=== PATIENT | female | born 1985 | race Two or more races ===

== ENCOUNTER 2025-02-12 15:44 | Inpatient (IN) | payer MEDICAID, OTHER ==
[~2025-02-12] VITALS: Ht 160 cm; Wt 67.5 kg
[2025-02-12 17:18] LABS: Hematocrit 42.7 % (36.0-46.0); Hemoglobin 14.0 g/dL (12.2-16.2); Mean Corpuscular Hemoglobin 29.6 pg (28.0-32.0); Mean Corpuscular Volume 89.9 fL (80.0-100.0); Nucleated Red Blood Cells % 0.1 %
[2025-02-12 17:32] LABS: Alanine Aminotransferase 12 U/L (7-40); Albumin 4.3 g/dL (3.2-4.8); Anion Gap 10 (5-15); BUN/Creatinine Ratio 10.6 (10.0-20.0); Calcium 9.3 mg/dL (8.7-10.4); Carbon Dioxide 27 mmol/L (20-31); Chloride 102 mmol/L (98-107); Glucose 88 mg/dL (74-106); Lipase 40 U/L (12-53); Potassium 3.8 mmol/L (3.5-5.1); Sodium 139 mmol/L (136-145); Total Protein 7.1 g/dL (5.7-8.2)
[2025-02-12 17:33] LABS: Bilirubin, Total 0.6 mg/dL (0.2-1.0)
[2025-02-12 18:22] LABS: Alkaline Phosphatase 46 U/L (46-116); Blood Urea Nitrogen 9 mg/dL (9-23)
[2025-02-12 18:30] LABS: Urine Protein, UAD Negative (Negative)
--- NOTE | 2025-02-12 20:00 | DVH ---
Exam: CT CT AB PEL WO CON-NO ORAL OR IV History: abd pain Comparison Study: None TECHNIQUE: Multidetector CT of the abdomen and pelvis was performed from lung bases to pubic symphysis. Imaging was performed without IV contrast. Axial, coronal, and sagittal multiplanar reformats were obtained from the axial data set by the technologist. RADIATION DOSE: CTDI vol 10.27 mGy. DLP 595.44 mGy.cm Findings: Limited evaluation of the solid organs in the absence of IV contrast. Lungs: The lung bases are clear. Liver: Unremarkable. Spleen: Unremarkable. Pancreas: Unremarkable. Gallbladder: Unremarkable. Adrenals: Unremarkable Kidneys: Mild left hydroureteronephrosis. No renal calculus. Pelvic Viscera: There is enlargement of the uterus, measuring up to 25 cm in craniocaudal dimension, with heterogeneous contents. Vasculature: Unremarkable. Retroperitoneum: Unremarkable. Bowel: No bowel obstruction. The appendix is mildly dilated measuring up to 8 mm with minimal adjacent stranding. Musculoskeletal: Unremarkable. Soft tissues: Unremarkable Impression: 1. Significant enlargement of the uterus with heterogeneous contents, suboptimally assessed by CT, pelvic MRI is suggested in further assessment. Neoplastic etiologies cannot be excluded. 2. Mild dilation of the appendix with minimal adjacent stranding, clinical correlation is suggested to exclude acute appendicitis.
--- NOTE | 2025-02-12 20:17 | ED.PDOC ---
GI ASSESSMENT HPI Comments This is a 39 year old female presenting to the ED with chief complaint of abdominal pain. Patient reports that she has been experiencing diffuse 7/10 abdominal pain for the past 2-3 weeks. Patient relays that her pain is intermittent and with associated nausea and constipation with hard stools. Patient states that her LMP was on 01/30/25 and was normal. Patient noticed her abdomen being more round and full over the last few days. Patient denies any vomiting, diarrhea, flank pain, dizziness, fever, or chills. Chief Complaint: Abdominal Pain Time Seen by MD: 20:14 Reviewed Notes: Nurses Notes, Medications, Allergies Allergies: Coded Allergies: NO KNOWN ALLERGIES (Unverified , 02/12/25) Information Source: Patient Mode of Arrival: Ambulatory Timing: Weeks Duration: Since onset Prehospital treatment: None Quality: Sharp Vomitus: None Stool: Impaction Severity: Moderate Recent: None Recent Hx of: None Modifying Factors: Nothing Associated sign and symptoms: Nausea, Abdominal Pain Past Medical History PAST MEDICAL HISTORY: Denies Surgical History: Denies all surgeries MOLASSES AND CARAMEL OPERATOR History: No Pertinent MOLASSES AND CARAMEL OPERATOR History Family History Family History: Reviewed,noncontributory to illness Social History Smoker: Non-Smoker Alcohol: Denies ETOH Use Drugs: Denies Drug Use Lives In: Home Constitutional: denies: chills, diaphoresis, fatigue, fever, malaise, sweats, weakness, others EENTM: denies: blurred vision, double vision, ear bleeding, ear discharge, ear drainage, ear pain, ear ringing, eye pain, eye redness, hearing loss, mouth pain, mouth swelling, nasal discharge, nose bleeding, nose congestion, nose pain, photophobia, tearing, throat pain, throat swelling, voice changes, others Respiratory: denies: cough, hemoptysis, orthopnea, SOB at rest, shortness of breath, SOB with excertion, stridor, wheezing, others Cardiovascular: denies: chest pain, dizzy spells, diaphoresis, Dyspnea on exertion, edema, irregular heart beat, left arm pain, lightheadedness, p alpitations, PND, syncope, others Gastrointestinal: reports: abdominal pain, constipated, nausea; denies: abdomen distended, blood streaked bowels, diarrhea, dysphagia, difficulty swallowing, hematemesis, melena, poor appetite, poor fluid intake, rectal bleeding, rectal pain, vomiting, others Genitourinary: denies: abnormal vagina bleeding, burning, dyspareunia, dysuria, flank pain, frequency, hematuria, incontinence, pain, , vagina discharge, urgency, others Physical Exam General Appearance: No Apparent Distress, Normal HEENT: Normal ENT Inspection, Pharynx Normal, TMs Normal Neck: Full Range of Motion, Non-Tender, Normal, Normal Inspection Respiratory: Chest Non-Tender, Lungs Clear, No Accessory Muscle Use, No Respiratory Distress, Normal Breath Sounds Cardiovascular: No Edema, No JVD, No Murmur, No Gallop, Normal Peripheral Pulses, Regular Rate/Rhythm Breast Exam: Deferred Gastrointestinal: No Organomegaly, No Pulsatile Mass, Normal Bowel Sounds, Soft, Tenderness (Diffuse tenderness and distention noted.) Genitalia: Deferred Pelvic: Deferred Rectal: Deferred Extremities: No calf tenderness, Normal capillary refill, Normal inspection, Normal range of motion, Non-tender, No pedal edema Musculoskeletal : Apperance: Normal Neurologic: Alert, bank advisor II-XII nml as Tested, No Motor Deficits, Normal Affect, Normal Mood, No Sensory Deficits Cerebellar Function: Normal Reflexes: Normal Skin: Dry, Normal Color, Warm Lymphatic: No Adenopathy Was a procedure done? Was a procedure done?: No GI differential Dx Differential Diagnosis: Gastritis/PUD, Gastroenteritis, GI hemorrhage, Ischemic Bowel, Ovarian cyst/torsion, Pancreatitis, PID X-Ray, Labs, Meds, VS Vital Signs Date Time Temp Pulse Resp B/P (MAP) Pulse Ox O2 Delivery O2 Flow Rate FiO2 02/12/25 18:02 97.5 74 15 130/76 (94) 95 97.5 02/12/25 15:46 97.7 86 16 136/89 97 97.7 Lab Test 02/12/25 17:48 02/12/25 16:44 Range/Units Urine Color Light-yellow Yellow Urine Clarity Turbid H Clear Urine pH 7.0 5.0-9.0 Urine Specific [place] 1.012 1.001-1.035 Urine Protein Negative Negative Urine Ketones Negative Negative Urine Blood 1+ H Negative /uL Urine Nitrite Negative Negative Urine Bilirubin Negative Negative Urine Urobilinogen Normal Negative mg/dL Urine Leukocyte Esterase 3+ Negative /uL Urine RBC 6 0 - 4 /hpf Urine Microscopic WBC 11 H 0-5 /HPF Urine Squamous Epithelial Cells Few <5 /hpf Urine Bacteria Few H None Seen /hpf Urine Glucose Normal Normal mg/dL Urine Test Negative Negative White Blood Count 6.6 4.4-10.8 10^3/uL Red Blood Count 4.75 4.0-5.20 10^6/uL Hemoglobin 14.0 12.2-16.2 g/dL Hematocrit 42.7 36.0-46.0 % Mean Corpuscular Volume 89.9 80.0-100.0 fL Mean Corpuscular Hemoglobin 29.6 28.0-32.0 pg Mean Corpuscular Hemoglobin Concent 32.9 32.0-36.0 g/dL Red Cell Distribution Width 15.3 H 11.8-14.3 % Platelet Count 277 140-450 10^3/uL Mean Platelet Volume 7.8 6.9-10.8 fL Neutrophils (%) (Auto) 46.2 37.0-80.0 % Lymphocytes (%) (Auto) 39.6 10.0-50.0 % Monocytes (%) (Auto) 8.1 0.0-12.0 % Eosinophils (%) (Auto) 5.1 0.0-7.0 % Basophils (%) (Auto) 1.0 0.0-2.0 % Neutrophils # (Auto) 3.0 1.6-8.6 10 ^3/uL Lymphocytes # (Auto) 2.6 0.4-5.4 10 ^3/uL Monocytes # (Auto) 0.5 0-1.3 10 ^3/uL Eosinophils # (Auto) 0.3 0-0.8 10 ^3/uL Basophils # (Auto) 0.1 0-0.2 10 ^3/uL Nucleated Red Blood Cells 0.1 % Sodium Level 139 136-145 mmol/L Potassium Level 3.8 3.5-5.1 mmol/L Chloride Level 102 98-107 mmol/L Carbon Dioxide Level 27 20-31 mmol/L Anion Gap 10 5-15 Blood Urea Nitrogen 9 9-23 mg/dL Creatinine 0.85 0.550-1.02 mg/dL Glomerular Filtration Rate Calc 89 >90 mL/min BUN/Creatinine Ratio 10.6 10.0-20.0 Serum Glucose 88 74-106 mg/dL Calcium Level 9.3 8.7-10.4 mg/dL Total Bilirubin 0.6 0.2-1.0 mg/dL Aspartate Amino Transferase (AST) 16 13-40 U/L Alanine Aminotransferase (ALT) 12 7-40 U/L Alkaline Phosphatase 46 46-116 U/L Total Protein 7.1 5.7-8.2 g/dL Albumin 4.3 3.2-4.8 g/dL Lipase 40 12-53 U/L X-Ray, Labs, Meds, VS Comment Patient will be admitted for abdominal pain, and uterine mass Recommend further evaluation, possible MRI Patient's vital signs have been stable, reviewed by this provider Prior history is reviewed by this provider Time of 1ST Reevaluation: 20:25 Reevaluation 1ST: Unchanged Patient Education/Counseling: Diagnosis, Treatment Family Education/Counseling: No Family Present SEPSIS Sepsis Screen Date sepsis recognized/suspect: Feb 12, 2025 Time Sepsis recognized/suspect: 1545 Recent Procedure: No On Antibiotic Therapy: No Respiratory Rate >20: No Heart Rate >90: No Temp<36 C (96.8 F) or >38.3 C: No SBP <90 or MAP <65 mmHG: No New Acute Mental Status Change: No Is the patient on CPAP, BIPAP,: No Physician Orders Ct Ab Pel Wo Con-No Oral Or Iv (02/12/25 16:14) Vital Signs Date Time Temp Pulse Resp B/P (MAP) Pulse Ox O2 Delivery O2 Flow Rate FiO2 02/12/25 18:02 97.5 74 15 130/76 (94) 95 97.5 02/12/25 15:46 97.7 86 16 136/89 97 97.7 Laboratory Tests Test 02/12/25 16:44 White Blood Count 6.6 10^3/uL (4.4-10.8) Departure 1 Departure Time of Disposition: 20:50 Impression: Primary Impression: Uterine mass Disposition: ADMITTED INPATIENT Condition: Stable Discharged With: Self Critical Care Note Critical Care Time?: No Stability Stability form required: No Heart Score Heart Score: Heart Score Response (Comments) Value History N/A 0 EKG N/A 0 Age N/A 0 Risk Factors N/A 0 Troponin N/A 0 Total 0 I personally scribed for AVTAR HOUSE ([email or web address]) on 02/12/25 at 20:17. Electronically submitted by [place] ([email or web address]). AVTAR HOUSE Feb 12, 2025 20:17
[2025-02-12] MEDS: SODIUM CHLORIDE 0.9% 1,000 ML IV ONE (23:15)
--- NOTE | 2025-02-12 23:29 | DVHHPRES ---
History of Present Illness Resident Creating Document: CAROLINA MARSHALL History of Present Illness Patient is a 39-year-old female with no significant past medical history, presented to [facility] ED with complaint of abdominal pain. The patient reports experiencing diffuse mid-abdominal pain, rated 7/10 in in tensity, for the past 3 weeks. She describes the pain as intermittent and associated with nausea and constipation, characterized by hard stools. Her last menstrual period was on 01/30/25 and was normal. Over the past few days, she has noticed increased abdominal fullness and rounding. The patient denies vomiting, diarrhea, flank pain, dizziness, fever, or chills. The patient was born with deafness. On evaluation in the ED, patient is afebrile, vitals are stable. Initial laboratory results are within normal limits. Abdominal CT shows significant enlargement of the uterus with heterogeneous contents and mild dilation of the appendix with minimal adjacent stranding. The patient was placed NPO, started on IV antibiotics and IV fluids. Patient is admitted for further evaluation and management. Past Surgical History: None Family History: None Smoke: No ALCOHOL: none Drugs: None Lives: with Family Review of Systems Review of Systems Eyes: No Pain, No Vision change, No Conjunctivae inflammation, No Eyelid inflammation, No Other, No Redness ENT: No Ear pain, No Ear discharge, No Nose pain, No Nose discharge, No Nose congestion, No Mouth pain, No Mouth swelling, No Throat pain, No Throat swelling, No Other Cardiovascular: No Chest Pain, No Palpitations, No Orthopnea, No Paroxysmal No Dyspnea, No Edema, No Lt Headedness, No Other Respiratory: No Cough, No Dry, No Shortness of breath, No SOB with exertion, No Wheezing, No Hemoptysis, No Pleuritic Pain, No Sputum, No Other Gastrointestinal: No Nausea, No Vomiting, Abdominal Pain, No Diarrhea, Constipation, No Melena, No Hematochezia, No Other Genitourinary: No Dysuria, No Frequency, No Incontinence, No Hematuria, No Retention, No Other Musculoskeletal: No other, No neck pain, No shoulder pain, No arm pain, back pain, No hand pain, No leg pain, No foot pain Skin: No Rash, No Lesions, No Jaundice, No Bruising, No Other Allergies: Coded Allergies: NO KNOWN ALLERGIES (Unverified , 02/12/25) Medications Current Medications Medications Dose Ordered Sig/Glenn Route Start Time Stop Time Status Last Admin Dose Admin Acetaminophen/ Hydrocodone Bitart 1 tab Q4HP PRN PO 02/12/25 23:15 UNV Ondansetron HCl 4 mg Q4HP PRN IV 02/12/25 23:15 UNV Docusate Sodium 100 mg BIDPRN PRN PO 02/12/25 23:15 UNV Ceftriaxone Sodium 50 ml @ 100 mls/hr DAILY@09 IV 02/13/25 09:00 UNV Exam Vital Signs Vital Signs Date Time Temp Pulse Resp B/P (MAP) Pulse Ox O2 Delivery O2 Flow Rate FiO2 02/12/25 18:02 97.5 74 15 130/76 (94) 95 97.5 Exam General Appearance: Mild distress. Well developed. Well nourished. NAD Head Exam: Normal inspection Neck Exam: Normal inspection. Non-tender. Normal alignment Pulmonary/Respiratory: Chest non-tender. Clear bilateral breath sounds, no crackles, no wheezing. Cardiovascular/Chest: Regular rate and rhythm. No murmurs. No JVD. Peripheral Pulses: 2+ Radial (R). 2+ Radial (L). 2+ Pedal (R). 2+ Pedal (L) Abdominal Exam: Diffuse tenderness and distention. negative Zaldivar sign. Normal bowel sounds. Soft. normal abdomen, no visible veins, No hepatospenomegaly. No masses Ankle Exam: Negative ankle edema Lower extremities: Negative lower extremity edema Neuro/Mental Status: A&O x4. Coherent. Thoughts/Psych: Normal thought pattern. Appropriate mood and affect. Good judgement and insight Skin Exam: Normal inspection. Normal color. Warm. Dry Labs/Xrays Labs Test 02/12/25 17:48 02/12/25 16:44 Range/Units Urine Color Light-yellow Yellow Urine Clarity Turbid H Clear Urine pH 7.0 5.0-9.0 Urine Specific [place] 1.012 1.001-1.035 Urine Protein Negative Negative Urine Ketones Negative Negative Urine Blood 1+ H Negative /uL Urine Nitrite Negative Negative Urine Bilirubin Negative Negative Urine Urobilinogen Normal Negative mg/dL Urine Leukocyte Esterase 3+ Negative /uL Urine RBC 6 0 - 4 /hpf Urine Microscopic WBC 11 H 0-5 /HPF Urine Squamous Epithelial Cells Few <5 /hpf Urine Bacteria Few H None Seen /hpf Urine Glucose Normal Normal mg/dL Urine Test Negative Negative White Blood Count 6.6 4.4-10.8 10^3/uL Red Blood Count 4.75 4.0-5.20 10^6/uL Hemoglobin 14.0 12.2-16.2 g/dL Hematocrit 42.7 36.0-46.0 % Mean Corpuscular Volume 89.9 80.0-100.0 fL Mean Corpuscular Hemoglobin 29.6 28.0-32.0 pg Mean Corpuscular Hemoglobin Concent 32.9 32.0-36.0 g/dL Red Cell Distribution Width 15.3 H 11.8-14.3 % Platelet Count 277 140-450 10^3/uL Mean Platelet Volume 7.8 6.9-10.8 fL Neutrophils (%) (Auto) 46.2 37.0-80.0 % Lymphocytes (%) (Auto) 39.6 10.0-50.0 % Monocytes (%) (Auto) 8.1 0.0-12.0 % Eosinophils (%) (Auto) 5.1 0.0-7.0 % Basophils (%) (Auto) 1.0 0.0-2.0 % Neutrophils # (Auto) 3.0 1.6-8.6 10 ^3/uL Lymphocytes # (Auto) 2.6 0.4-5.4 10 ^3/uL Monocytes # (Auto) 0.5 0-1.3 10 ^3/uL Eosinophils # (Auto) 0.3 0-0.8 10 ^3/uL Basophils # (Auto) 0.1 0-0.2 10 ^3/uL Nucleated Red Blood Cells 0.1 % Sodium Level 139 136-145 mmol/L Potassium Level 3.8 3.5-5.1 mmol/L Chloride Level 102 98-107 mmol/L Carbon Dioxide Level 27 20-31 mmol/L Anion Gap 10 5-15 Blood Urea Nitrogen 9 9-23 mg/dL Creatinine 0.85 0.550-1.02 mg/dL Glomerular Filtration Rate Calc 89 >90 mL/min BUN/Creatinine Ratio 10.6 10.0-20.0 Serum Glucose 88 74-106 mg/dL Calcium Level 9.3 8.7-10.4 mg/dL Total Bilirubin 0.6 0.2-1.0 mg/dL Aspartate Amino Transferase (AST) 16 13-40 U/L Alanine Aminotransferase (ALT) 12 7-40 U/L Alkaline Phosphatase 46 46-116 U/L Total Protein 7.1 5.7-8.2 g/dL Albumin 4.3 3.2-4.8 g/dL Lipase 40 12-53 U/L SEPSIS Sepsis Screen Date sepsis recognized/suspect: Feb 12, 2025 Time Sepsis recognized/suspect: 1545 Recent Procedure: No On Antibiotic Therapy: No Respiratory Rate >20: No Heart Rate >90: No Temp<36 C (96.8 F) or >38.3 C: No SBP <90 or MAP <65 mmHG: No New Acute Mental Status Change: No Is the patient on CPAP, BIPAP,: No Physician Orders Ct Ab Pel Wo Con-No Oral Or Iv (02/12/25 16:14) Admit (02/12/25 23:05) Allergies (02/12/25 23:05) Code Status (02/12/25 23:05) Hydrocodone-Acet 5/325mg Tab ([place] 5/32 (02/12/25 23:15) Ondansetron Hcl (Zofran) (02/12/25 23:15) Complete Blood Count (02/13/25 04:00) Comprehensive Metabolic Panel (02/13/25 04:00) Condition: Stable (02/12/25 23:05) Stat Ekg For Chest Pain (02/12/25 23:05) Notify Of Changes From Base (02/12/25 23:05) * Road Patcher Consultation (02/12/25 23:05) Drug Screen (02/12/25 23:05) Type And Screen (02/12/25 23:05) PTPTT (02/12/25 23:05) Chest Xray 1 View (02/12/25 23:05) Ceftriaxone 1gm/50ml (Rocephin) (02/13/25 09:00) Ceftriaxone 1gm/50ml (Rocephin) (02/12/25 23:15) Sodium Chloride 0.9% (02/12/25 23:15) Abdomen Limited (02/12/25 23:05) Urine Bacterial Culture (02/12/25 23:05) Npo Except For Medications (02/12/25 23:05) Npo (Nothing By Mouth) Diet (02/12/25 Breakfast) Docusate Sodium Capsule (Colace Capsule) (02/12/25 23:15) Vital Signs Date Time Temp Pulse Resp B/P (MAP) Pulse Ox O2 Delivery O2 Flow Rate FiO2 02/12/25 18:02 97.5 74 15 130/76 (94) 95 97.5 02/12/25 15:46 97.7 86 16 136/89 97 97.7 Laboratory Tests Test 02/12/25 16:44 White Blood Count 6.6 10^3/uL (4.4-10.8) Assessment/Plan Assessment/Plan Acute appendicitis Intractable abdominal pain due to above Abdomen/Pelvis CT: The appendix is mildly dilated measuring up to 8 mm with minimal adjacent stranding. Appendix US: The appendix was not visualized. IV NS 125 MLS/HR Zofran 4 MG IV q4h pain management with [place] 1 TAB PO q4h prn Ceftriaxone IV daily Urine bacterial culture Uterine neoplasm Abdomen/Pelvis CT: There is enlargement of the uterus, measuring up to 25 cm in craniocaudal dimension, with heterogeneous contents. OBGYN consult Pelvic MRI is suggested in further assessment No history of sexual activity No prior Pap smear Diet: NPO Goals of care: Full code, discussed for >30 minutes on 02/12/25 Plan discussed with patient Plan discussed with Dr. Bronson Plan discussed with: Patient My Orders Orders - CAROLINA MARSHALL RESIDENT Procedure Category Date Status Time Admit ADMIT 02/12/25 Transmitted 23:05 Allergies ANCA 02/12/25 In Process 23:05 Code Status CODE 02/12/25 Transmitted 23:05 Hydrocodone-Acet PHA 02/12/25 Logged 5/325mg Tab ([place] 23:15 Ondansetron Hcl PHA 02/12/25 Logged (Zofran) 23:15 Complete Blood Count LAB 02/13/25 Verified 04:00 Comprehensive LAB 02/13/25 Verified Metabolic Panel 04:00 Condition: Stable ANCA 02/12/25 In Process 23:05 Stat Ekg For Chest ANCA 02/12/25 In Process Pain 23:05 Notify Of Changes ANCA 02/12/25 In Process From Base 23:05 * Road Patcher Consultation CONS 02/12/25 Transmitted 23:05 Drug Screen LAB 02/12/25 Logged 23:05 Type And Screen BBK 02/12/25 Logged 23:05 PTPTT LAB 02/12/25 Logged 23:05 Chest Xray 1 View XY 02/12/25 Logged 23:05 Ceftriaxone 1gm/50ml PHA 02/13/25 Logged (Rocephin) 09:00 Ceftriaxone 1gm/50ml PHA 02/12/25 Logged (Rocephin) 23:15 Sodium Chloride 0.9% PHA 02/12/25 Logged 23:15 Abdomen Limited US 02/12/25 Logged 23:05 Urine Bacterial SAVANNAH 02/12/25 Logged Culture 23:05 Npo Except For ANCA 02/12/25 In Process Medications 23:05 Npo (Nothing By DIET 02/12/25 Transmitted Mouth) Diet Breakfast Docusate Sodium PHA 02/12/25 Verified Capsule (Colace 23:15 Date of Service: Feb 12, 2025 Billing Provider: DONTE BRONSON MD Common Visit Codes: 02616-[id number] INP/OBS CARE (HIGH) Secondary Visit Codes: [id number] CARE PLAN 30 MINUTES CAROLINA MARSHALL RESIDENT Feb 12, 2025 23:29
[2025-02-12 23:55] LABS: Amphetamine Screen, Urine Neg (NEGATIVE); Barbiturate Scree,Urine Neg (NEGATIVE); Benzodiazephine Screen, Urine Neg (NEGATIVE); Cannabinoid Screen, Urine Neg (NEGATIVE); Cocaine Screen, Urine Neg (NEGATIVE); Opiate Scree,Urine Neg (NEGATIVE); Phencyclidine Screen, Urine Neg (NEGATIVE)
[2025-02-13] VITALS (9 sets, daily range): BP systolic 120–135; BP diastolic 79–88; PULSE 90–117; RESP 16–18; TEMP 97.4–98.9; O2SAT 96–99
[2025-02-13 01:02] LABS: INR 1.01 (0.9-1.15); Partial Thromboplastin Time 29.1 SEC (24.5-34.5); Prothrombin Time 10.7 sec (9.3-11.8)
--- NOTE | 2025-02-13 01:02 | DVH ---
STUDY: US RIGHT LOWER QUAD History: r/o appendicitis Technique: Multiplanar grayscale, and color ultrasound images, of the abdomen were obtained. Color Doppler interrogation was performed. Findings: The appendix was not visualized. Enlarged uterus is incidentally noted. IMPRESSION: 1. The appendix was not visualized. 2. Incidental note of enlarged uterus, suboptimally assessed.
[2025-02-13] MEDS ORDERED: CETI-195 PO (01:42)
--- NOTE | 2025-02-13 05:59 | DVH ---
CHEST RADIOGRAPH Indication: Chest pain Technique: Single frontal view of the chest was obtained Comparison: None FINDINGS: Lines and Tubes: None Lungs: No focal consolidation. Pleura: No effusion. No pneumothorax. Cardiomediastinal contours: Unremarkable Bones: No acute osseous abnormality. IMPRESSION: 1. No acute cardiopulmonary disease.
[2025-02-13 06:12] LABS: Hematocrit 39.5 % (36.0-46.0); Hemoglobin 13.4 g/dL (12.2-16.2); Mean Corpuscular Hemoglobin 29.5 pg (28.0-32.0); Mean Corpuscular Volume 87.1 fL (80.0-100.0); Nucleated Red Blood Cells % 0.1 %
[2025-02-13 06:44] LABS: Alanine Aminotransferase < 9 U/L (7-40); Albumin 4.0 g/dL (3.2-4.8); Alkaline Phosphatase 43 U/L (46-116); Anion Gap 12 (5-15); BUN/Creatinine Ratio 10.1 (10.0-20.0); Bilirubin, Total 0.4 mg/dL (0.2-1.0); Blood Urea Nitrogen 8 mg/dL (9-23); Calcium 9.1 mg/dL (8.7-10.4); Carbon Dioxide 26 mmol/L (20-31); Chloride 103 mmol/L (98-107); Glucose 101 mg/dL (74-106); Potassium 3.8 mmol/L (3.5-5.1); Sodium 141 mmol/L (136-145); Total Protein 6.7 g/dL (5.7-8.2)
--- NOTE | 2025-02-13 10:37 | DVH ---
INDICATION: Abdominal pain TECHNIQUE: Multiple real-time grayscale transabdominal sonographic images along with color and duplex Doppler of the uterus and ovaries were obtained. COMPARISON: US RIGHT LOWER QUAD on DOS: 02/12/25, CT CT AB PEL WO CON-NO ORAL OR IV on DOS: 02/12/25 FINDINGS: The uterus is difficult to measure given large intrauterine mass. Large solid mass is visualized centered in the pelvis measuring 24 x 14 x 2.4 cm. Bilateral ovaries are not well visualized due to obscuration from bowel gas. IMPRESSION: Large solid mass is visualized centered in the pelvis measuring 24 x 14 x 2.4 cm. Findings are suspicious for malignancy. Origin may be ovarian or intrauterine.
[2025-02-13] MEDS: ONDANSETRON HCL 4 MG/2 ML VIAL IV PRN (10:41)
[2025-02-13] MEDS ORDERED: LORazepam 2MG/ML-1ML VIAL IV ONE (13:00)
--- NOTE | 2025-02-13 13:00 | DVHPN2 ---
Progress Note Date Seen: Feb 13, 2025 Medical Necessity Reason Pt with a Central, PICC or Fol: No Subjective Patient reports: No new complaints Review of Systems: HEENT:Normal, CVS:Normal, RESPIRATORY:Normal, GI:Normal, :Normal, MSK:Normal, NEURO:Normal Objective vital signs Vital Sign Date Time Temp Pulse Resp B/P (MAP) Pulse Ox O2 Delivery O2 Flow Rate FiO2 02/13/25 09:00 97.4 93 16 122/88 (99) 98 97.4 02/13/25 08:00 Room Air* 0 21 Total Intake and Output 02/12/25 02/12/25 02/13/25 15:00 23:00 07:00 Intake Total 0 ml Output Total 0 ml Balance 0 ml medications Current Medications Medications Dose Ordered Sig/Glenn Route Start Time Stop Time Status Last Admin Dose Admin Acetaminophen/ Hydrocodone Bitart 1 tab Q4HP PRN PO 02/12/25 23:15 Ondansetron HCl 4 mg Q4HP PRN IV 02/12/25 23:15 02/13/25 10:41 4 MG Docusate Sodium 100 mg BIDPRN PRN PO 02/12/25 23:15 Ceftriaxone Sodium 50 ml @ 100 mls/hr DAILY@09 IV 02/14/25 09:00 Examination: GENERAL:Normal, HEENT:Normal, NECK:Normal, LUNGS:Normal, CVS:Normal, ABDOMEN:Normal, ABDOMEN:Abnormal (distension), MSK:Normal, SKIN:Normal, NEURO:Normal, :Normal laboratory and microbiology Laboratory Tests 02/13/25 05:25 Test 02/13/25 05:25 Range/Units Serum Glucose 101 74-106 mg/dL Problem List/Assessment/Plan Problem List/Assessment/Plan #1 large pelvic mass: mri pelvis, ca 125 #2 uti: iv rocephin #3 obesity #4 deafness Plan discussed with: Patient, Other (parents) Date of Service: Feb 13, 2025 Billing Provider: VALENTIN SERRANO MD Common Visit Codes: [id number] INP/OBS CARE(HIGH) VALENTIN SERRANO MD Feb 13, 2025 13:00
[2025-02-13] MEDS ORDERED: GADOTERATE MEG 10 MMOL/20ml INJ (0.5MMOL/ml) IV ONE (15:28)
--- NOTE | 2025-02-13 16:46 | DVHPN2 ---
Visit Coding OBGYN Date of Service: Feb 13, 2025 Billing Provider: RAY MORAN DO WIPING CLOTH CUTTER Common Visit Codes: [id number] OBS CARE (HIGH) WIPING CLOTH CUTTER Consultation Codes: 44460-T/U INPATIENT CONSULT (HIGH) RAY MORAN DO Feb 13, 2025 16:46
--- NOTE | 2025-02-13 17:36 | DVHINCON2 ---
REASON FOR CONSULTATION: Abdominal pain, pelvic mass. HISTORY OF PRESENT ILLNESS: The patient is a 39-year-old 0, para 0 female admitted for abdominal pain. The patient reports having had abdominal pain which started 3 weeks ago, became worse. There has been some intermittent nausea and constipation. Last menstrual period was 01/30. Reports having increase in abdominal fullness and girth. The patient was born with hearing impairment. She has never been sexually active and has not had any Pap smear. CT of abdomen reveals enlargement of uterus 25 cm with hydroureteronephrosis. Pelvic ultrasound reveals solid mass in mid pelvis approximately 25 x 14 x 2.4. PAST MEDICAL HISTORY: None. PAST SURGICAL HISTORY: None. SOCIAL HISTORY: None. FAMILY HISTORY: None. ALLERGIES: No known drug allergies. REVIEW OF SYSTEMS: Consistent with HPI. PHYSICAL EXAMINATION: VITAL SIGNS: Stable, afebrile. HEENT: Within normal limits. CARDIOVASCULAR: Regular rate and rhythm. LUNGS: Clear to auscultation. BREASTS: Symmetrical. No masses. No nipple discharge. ABDOMEN: Distended, diffuse, tenderness and distention noted. Large mass consistent with approximately 30-week size noted. PELVIC: Reveals external genitalia within normal limits. No digital exam was performed. Uterus 30 weeks' size per abdominal palpation. EXTREMITIES: No clubbing, cyanosis or edema. IMPRESSION: Abdominal pain, enlarging uterus/pelvic mass. PLAN: MRI of pelvis was ordered. CA-125 ordered. We will contact Dr. Redman, Cracking Still Operator/Onc at [facility] for transfer to [facility]. We will follow. Thank you very much for this consultation. DO RIGO Wright/RIZWANA/GUALBERTO TID: [id number] RECEIPT: [id number]
[2025-02-13] MEDS: DOCUSATE SOD 100 MG CAP PO PRN (18:53)
--- NOTE | 2025-02-13 20:06 | DVH ---
Exam: MRI PELVIS WO W CONTRAST MRI History: pelvic mass Comparison: US PELVIC on DOS: 02/13/25, US RIGHT LOWER QUAD on DOS: 02/12/25, CT CT AB PEL WO CON-NO ORAL OR IV on DOS: 02/12/25 Technique: Multisequence multiplanar MRI images of the pelvis were performed. Findings: Bladder: Unremarkable. Visualized bowel: Visualized portion of the bowel is grossly unremarkable without evidence for obstruction. Pelvic organs: Uterus measures 7.1 x 3.8 x 8.0 cm. Endometrium is within normal limits and measures 0.9 cm. Few Small Intramural fibroids are present measuring up to 2.6 cm, anteriorly. Right ovary is not definitively visualized. Left ovary measures 3.6 cm. Left ovarian follicles are present. Redemonstration of heterogeneous mass abutting the superior and posterior aspect of the uterus which demonstrates postcontrast enhancement measuring 21.5 x 11.7 x 23.8 cm. Lymphadenopathy: No evidence for pelvic lymphadenopathy. Vasculature: There is normal enhancement of the pelvic vasculature. Ascites: Absent. Musculoskeletal: The bone marrow signal is preserved. IMPRESSION: Redemonstration of indeterminate heterogeneous pelvic mass measuring 21.5 x 11.7 x 23.8 cm. Differential considerations could include low-grade uterine leiomyosarcoma versus less likely other malignant uterine neoplasm or complex ovarian neoplasm.
[2025-02-14] VITALS (9 sets, daily range): BP systolic 93–136; BP diastolic 65–87; PULSE 101–112; RESP 18; TEMP 97.4–98.8; O2SAT 95–98
--- NOTE | 2025-02-14 11:18 | DVHDS2 ---
Discharge Summary Date of Admission Feb 12, 2025 at 23:05 Date of Discharge: Feb 13, 2025 Labs/Diagnostic Data: Laboratory Results Test 02/13/25 13:50 02/13/25 05:25 02/13/25 00:08 02/12/25 17:48 CA 125 Antigen 25.3 U/mL (0.0-38.1) White Blood Count 6.3 10^3/uL (4.4-10.8) Red Blood Count 4.53 10^6/uL (4.0-5.20) Hemoglobin 13.4 g/dL (12.2-16.2) Hematocrit 39.5 % (36.0-46.0) Mean Corpuscular Volume 87.1 fL (80.0-100.0) Mean Corpuscular Hemoglobin 29.5 pg (28.0-32.0) Mean Corpuscular Hemoglobin Concent 33.9 g/dL (32.0-36.0) Red Cell Distribution Width 14.8 % (11.8-14.3) Platelet Count 261 10^3/uL (140-450) Mean Platelet Volume 7.7 fL (6.9-10.8) Neutrophils (%) (Auto) 59.0 % (37.0-80.0) Lymphocytes (%) (Auto) 31.1 % (10.0-50.0) Monocytes (%) (Auto) 6.9 % (0.0-12.0) Eosinophils (%) (Auto) 2.1 % (0.0-7.0) Basophils (%) (Auto) 0.9 % (0.0-2.0) Neutrophils # (Auto) 3.7 10 ^3/uL (1.6-8.6) Lymphocytes # (Auto) 2.0 10 ^3/uL (0.4-5.4) Monocytes # (Auto) 0.4 10 ^3/uL (0-1.3) Eosinophils # (Auto) 0.1 10 ^3/uL (0-0.8) Basophils # (Auto) 0.1 10 ^3/uL (0-0.2) Nucleated Red Blood Cells 0.1 % Sodium Level 141 mmol/L (136-145) Potassium Level 3.8 mmol/L (3.5-5.1) Chloride Level 103 mmol/L (98-107) Carbon Dioxide Level 26 mmol/L (20-31) Anion Gap 12 (5-15) Blood Urea Nitrogen 8 mg/dL (9-23) Creatinine 0.79 mg/dL (0.550-1.02) Glomerular Filtration Rate Calc 97 mL/min (>90) BUN/Creatinine Ratio 10.1 (10.0-20.0) Serum Glucose 101 mg/dL (74-106) Calcium Level 9.1 mg/dL (8.7-10.4) Total Bilirubin 0.4 mg/dL (0.2-1.0) Aspartate Amino Transferase (AST) 13 U/L (13-40) Alanine Aminotransferase (ALT) < 9 U/L (7-40) Alkaline Phosphatase 43 U/L (46-116) Total Protein 6.7 g/dL (5.7-8.2) Albumin 4.0 g/dL (3.2-4.8) Prothrombin Time 10.7 sec (9.3-11.8) Prothrombin Time INR 1.01 (0.9-1.15) Activated Partial Thromboplast Time 29.1 SEC (24.5-34.5) Urine Color Light-yellow (Yellow) Urine Clarity Turbid (Clear) Urine pH 7.0 (5.0-9.0) Urine Specific [place] 1.012 (1.001-1.035) Urine Protein Negative (Negative) Urine Ketones Negative (Negative) Urine Blood 1+ /uL (Negative) Urine Nitrite Negative (Negative) Urine Bilirubin Negative (Negative) Urine Urobilinogen Normal mg/dL (Negative) Urine Leukocyte Esterase 3+ /uL (Negative) Urine RBC 6 /hpf (0 - 4) Urine Microscopic WBC 11 /HPF (0-5) Urine Squamous Epithelial Cells Few /hpf (<5) Urine Bacteria Few /hpf (None Seen) Urine Glucose Normal mg/dL (Normal) Urine Test Negative (Negative) Urine Opiates Screen Neg (NEGATIVE) Urine Fentanyl Screen Neg (NEGATIVE) Urine Barbiturates Screen Neg (NEGATIVE) Urine Phencyclidine Screen Neg (NEGATIVE) Urine Amphetamines Screen Neg (NEGATIVE) Urine Benzodiazepines Screen Neg (NEGATIVE) Urine Cocaine Screen Neg (NEGATIVE) Urine Cannabinoids Screen Neg (NEGATIVE) Test 02/12/25 16:44 Lipase 40 U/L (12-53) Other Laboratory Tests 11/11/25 05:25 Brief Hx & Hospital Course: SEE DICTATED NOTE Condition at Discharge: Fair Final Diagnosis/Problems List Pelvic mass Discharge Disposition: Acute Care Facility Discharge Instruct/Medications Diet: Regular Activity: Light activity Miscellaneous Medications Cetirizine HCl (Allergy), 10 MG PO, (Reported) Discharge Statement: "Patient was advised to return to the ER or call 911 if any headaches, dizziness, shortness of breath, chest pain, abdominal pain, bleeding, fevers, or worsening of medical condition. Patient was counseled about treatment plan, medications, possible side effects, patientverbalized understanding. All questions were answered to the best of my ability. This discharge took greater then 30 minutes in planning, reviewing documentation, counseling the patient, and discussing with other team members." ASSESSMENT ASSESSMENT Assessment Pelvic mass Date of Service: Feb 14, 2025 Billing Provider: VALENTIN SERRANO MD Common Visit Codes: 73149-BSV/OBS DISCH DAY >30min VALENTIN SERRANO MD Feb 14, 2025 11:18
--- NOTE | 2025-02-14 11:31 | DVHDS ---
DATE OF DISCHARGE: 02/14/2025 DATE OF TRANSFER: 02/14/2025 HISTORY OF PRESENT ILLNESS: The patient is a 39-year-old lady who is admitted with history of diffuse abdominal pain along with nausea and constipation. The patient also had difficulty hearing. HOSPITAL COURSE: The patient had a CT of abdomen and pelvis that showed a large pelvic mass. The patient subsequently had a pelvic MRI that showed a pelvic mass suggestive of possible low-grade uterine leiomyosarcoma or other malignant uterine neoplasm or complex ovarian neoplasm. The patient also had UTI and was placed on IV Rocephin. She was seen in [facility] consult by Dr. Garza. The patient will now be transferred to a higher level of care for management. FINAL DIAGNOSES: * Large pelvic mass, questionably uterine, questionably malignant. * UTI. * Obesity. * Deafness. Time spent in discharge planning, review of plan with the patient, family, and wig sales consultant was 41 minutes. MD ISABEL Hubbard/KALE TID: [id number] RECEIPT: [id number]
[2025-02-14] MEDS: HYDROcodone-ACET 5/325MG TAB PO PRN (15:16)
== END 2025-02-14 20:49 | disposition short-term general hospital (02) | DRG 530 ==
LOC: ER 15:44 → OVERFLOW 23:05 → WEST WING 02-13 00:52
PROVIDERS: ADMIT Internal Medicine; ATTEND Internal Medicine
DX: C55 Malignant neoplasm of uterus, part unspecified (principal); C56.2 Malignant neoplasm of left ovary; C57.3 Malignant neoplasm of parametrium; N13.6 Pyonephrosis; E66.9 Obesity, unspecified; R19.00 Intra-abdominal and pelvic swelling, mass and lump, unspecified site; H91.90 Unspecified hearing loss, unspecified ear; N85.2 Hypertrophy of uterus; Z68.26 Body mass index [BMI] 26.0-26.9, adult; K59.00 Constipation, unspecified
CPT/HCPCS: 36415; 71045; 73723; 74176; 76705; 76856; 80053; 80307; 81001; 81025; 83690; 85025; 85610; 85730; 86304; 86850; 86900; 86901; 87086; G0378; J2405

== ENCOUNTER 2025-03-09 18:28 | Emergency (ER) | payer MEDICAID ==
[~2025-03-09] VITALS: Ht 160 cm; Wt 70.7 kg
[~2025-03-09 18:28] MED LIST: CETI-195 PO
[2025-03-09 18:32] VITALS: BP 130/79; PULSE 130; RESP 17; TEMP 98.3; O2SAT 95
--- NOTE | 2025-03-09 19:18 | ED.PDOC ---
AERIAL PHOTOGRAPHER HPI Comments 39-year-old female came to the ER for vaginal bleeding. Patient underwent hysterectomy at [facility] last February 19, 2025 due to a pelvic mass. Patient tolerated procedure well. 2 days prior to the procedure patient was started on blood thinners due to a blood clot seen in the lungs. Earlier today patient started complaining for lower quadrant abdominal pain, started having vaginal bleeding. Patient still on Eliquis. Chief Complaint: Vaginal Bleed Time Seen by MD: 19:17 Reviewed Notes: Nurses Notes Allergies: Coded Allergies: NO KNOWN ALLERGIES (Unverified , 02/12/25) Home Meds Reported Medications Cetirizine HCl (Allergy) 10 Mg Tab, 10 MG PO, TAB 02/13/25 Information Source: Patient, Friend Mode of Arrival: Ambulatory Past Medical History PAST MEDICAL HISTORY: Denies Past Medical History (Other): Deaf Surgical History: Hysterectomy INDUSTRIAL EDUCATION TEACHER History: No Pertinent INDUSTRIAL EDUCATION TEACHER History Family History Family History: Reviewed,noncontributory to illness Social History Smoker: Non-Smoker Alcohol: Denies ETOH Use Drugs: Denies Drug Use Lives In: Home Constitutional: denies: chills, diaphoresis, fatigue, fever, malaise, sweats, weakness, others EENTM: denies: blurred vision, double vision, ear bleeding, ear discharge, ear drainage, ear pain, ear ringing, eye pain, eye redness, hearing loss, mouth pain, mouth swelling, nasal discharge, nose bleeding, nose congestion, nose pain, photophobia, tearing, throat pain, throat swelling, voice changes, others Respiratory: denies: cough, hemoptysis, orthopnea, SOB at rest, shortness of breath, SOB with excertion, stridor, wheezing, others Cardiovascular: denies: chest pain, dizzy spells, diaphoresis, Dyspnea on exertion, edema, irregular heart beat, left arm pain, lightheadedness, palpitations, PND, syncope, others Gastrointestinal: reports: abdominal pain; denies: abdomen distended, blood streaked bowels, constipated, diarrhea, dysphagia, difficulty swallowing, hematemesis, melena, nausea, poor appetite, poor fluid intake, rectal bleeding, rectal pain, vomiting, others Genitourinary: reports: abnormal vagina bleeding; denies: burning, dyspareunia, dysuria, flank pain, frequency, hematuria, incontinence, pain, , vagina discharge, urgency, others Neurological: denies: dizziness, fainting, headache, left sided numbness, left sided weakness, numbness, paresthesia, pre-existing deficit, right sided numbness, right sided weakness, seizure, speech problems, tingling, tremors, weakness, others Musculoskeletal: denies: back pain, gout, joint pain, joint swelling, muscle pain, muscle stiffness, neck pain, others Integumetry: denies: bruises, change in color, change in hair/nails, dryness, laceration, lesions, lumps, rash, wounds, others Allergic/Immunocompromised: denies: Difficulty Healing, Frequent Infections, Hives, Itching, others Hematologic/Lymphatic: denies: anemia, blood clots, easy bleeding, easy bruising, swollen glands, others Endocrine: denies: excessive hunger, excessive sweating, excessive thirst, excessive urination, flushing, intolerance to cold, intolerance to heat, un explained weight gain, unexplained weight loss, others Psychiatric: denies: anxiety, bipolar disorder, depression, hopeless, panic disorder, schizophrenia, sleepless, suicidal, others Physical Exam General Appearance: No Apparent Distress, Normal HEENT: Normal ENT Inspection, Pharynx Normal, TMs Normal Neck: Full Range of Motion, Non-Tender, Normal, Normal Inspection Respiratory: Chest Non-Tender, Lungs Clear, No Accessory Muscle Use, No Respiratory Distress, Normal Breath Sounds Cardiovascular: No Edema, No JVD, No Murmur, No Gallop, Normal Peripheral Pulses, Regular Rate/Rhythm Breast Exam: Deferred Gastrointestinal: No Organomegaly, Non Tender, No Pulsatile Mass, Normal Bowel Sounds, Soft Genitalia: Deferred Pelvic: Deferred Rectal: Deferred Extremities: No calf tenderness, Normal capillary refill, Normal inspection, Normal range of motion, Non-tender, No pedal edema Musculoskeletal : Apperance: Normal Neurologic: Alert, paper bundler II-XII nml as Tested, No Motor Deficits, Normal Affect, Normal Mood, No Sensory Deficits Cerebellar Function: Normal Reflexes: Normal Skin: Dry, Normal Color, Warm Lymphatic: No Adenopathy Was a procedure done? Was a procedure done?: No Differential Diagnosis (INDUSTRIAL EDUCATION TEACHER) Vaginal Bleeding: Blood Loss Anemia, UTI X-Ray, Labs, Meds, VS Vital Signs Date Time Temp Pulse Resp B/P (MAP) Pulse Ox O2 Delivery O2 Flow Rate FiO2 12/5/25 18:32 98.3 130 17 130/79 95 98.3 Lab Test 03/09/25 19:21 Range/Units White Blood Count 10.7 4.4-10.8 10^3/uL Red Blood Count 4.86 4.0-5.20 10^6/uL Hemoglobin 14.5 12.2-16.2 g/dL Hematocrit 42.5 36.0-46.0 % Mean Corpuscular Volume 87.4 80.0-100.0 fL Mean Corpuscular Hemoglobin 29.7 28.0-32.0 pg Mean Corpuscular Hemoglobin Concent 34.0 32.0-36.0 g/dL Red Cell Distribution Width 14.7 H 11.8-14.3 % Platelet Count 479 H 140-450 10^3/uL Mean Platelet Volume 7.5 6.9-10.8 fL Neutrophils (%) (Auto) 84.9 H 37.0-80.0 % Lymphocytes (%) (Auto) 11.7 10.0-50.0 % Monocytes (%) (Auto) 2.6 0.0-12.0 % Eosinophils (%) (Auto) 0.2 0.0-7.0 % Basophils (%) (Auto) 0.6 0.0-2.0 % Neutrophils # (Auto) 9.1 H 1.6-8.6 10 ^3/uL Lymphocytes # (Auto) 1.3 0.4-5.4 10 ^3/uL Monocytes # (Auto) 0.3 0-1.3 10 ^3/uL Eosinophils # (Auto) 0 0-0.8 10 ^3/uL Basophils # (Auto) 0.1 0-0.2 10 ^3/uL Nucleated Red Blood Cells 0.0 % Sodium Level 138 136-145 mmol/L Potassium Level 4.1 3.5-5.1 mmol/L Chloride Level 102 98-107 mmol/L Carbon Dioxide Level 24 20-31 mmol/L Anion Gap 12 5-15 Blood Urea Nitrogen 8 L 9-23 mg/dL Creatinine 0.72 0.550-1.02 mg/dL Glomerular Filtration Rate Calc 108 >90 mL/min BUN/Creatinine Ratio 11.1 10.0-20.0 Serum Glucose 111 H 74-106 mg/dL Calcium Level 9.9 8.7-10.4 mg/dL EXAM: US PELVIC HISTORY: vaginal bleeding COMPARISON: MRI PELVIS WO W CONTRAST MRI on DOS: 02/13/25 TECHNIQUE: Transabdominal imaging was utilized. Grayscale and color doppler evaluation. Images were stored in the patient's permanent medical record. FINDINGS: UTERUS: Surgically removed RIGHT OVARY: 3.7 x 4.2 x 3.7 cm.Normal vascularity. Benign-appearing right ovarian cysts measuring up to 2.6 cm LEFT OVARY: Not well visualized OTHER: No free fluid is identified. Heterogeneous debris with oval-shaped appearance and large hypoechoic heterogeneous structure in the vaginal canal measuring 4.6 x 2 x 2.8 cm possible internal punctate echogenic foci which may represent calcifications. Differential includes mass versus postsurgical change. Correlation with possible direct visualization is recommended IMPRESSION: 1. Heterogeneous debris with oval-shaped appearance and large hypoechoic heterogeneous structure in the vaginal canal measuring 4.6 x 2 x 2.8 cm possible internal punctate echogenic foci which may represent calcifications. 2. Previously identified large uterine based mass has been surgically removed. 3. Consider direct visualization. 4. Recurrent mass along the vaginal canal versus postsurgical change versus hematoma. Time of 1ST Reevaluation: 19:14 Reevaluation 1ST: Unchanged Patient Education/Counseling: Diagnosis, Treatment, Prognosis, Need For Follow Up Family Education/Counseling: Diagnosis, Treatment, Prognosis, Need For Follow Up Comments This patient is post myomectomy. She is also on Eliquis for his fall P. he presents to the ER with chief complaint of vaginal hammering he blood pressure normal. Appears to be in no distress. Ultrasound show any acute finding other than consistent with postoperative changes. He is he is normal. Patient is stable for discharge to follow up with a doctor for postoperative residual bleed Departure 1 Departure Time of Disposition: 21:18 Impression: Primary Impression: Vaginal bleeding Disposition: 01 HOME / SELF CARE / HOMELESS Condition: Good Discharged With: Self, Relative Critical Care Note Critical Care Time?: No Stability Stability form required: No Heart Score Heart Score: Heart Score Response (Comments) Value History N/A 0 EKG N/A 0 Age N/A 0 Risk Factors N/A 0 Troponin N/A 0 Total 0 I personally scribed for MATTHEW EVANS MD ([facility]) on 03/09/25 at 19:18. Electronically submitted by Jean Acosta ([facility]). I personally scribed for MATTHEW EVANS MD ([facility]) on 03/09/25 at 20:37. Electronically submitted by Jean Acosta ([facility]). MATTHEW EVANS MD Mar 09, 2025 19:18
[2025-03-09 19:44] LABS: Hemoglobin 14.5 g/dL (12.2-16.2); Mean Corpuscular Volume 87.4 fL (80.0-100.0); Nucleated Red Blood Cells % 0.0 %
[2025-03-09 19:46] LABS: Hematocrit 42.5 % (36.0-46.0); Mean Corpuscular Hemoglobin 29.7 pg (28.0-32.0)
[2025-03-09 20:01] LABS: Chloride 102 mmol/L (98-107); Potassium 4.1 mmol/L (3.5-5.1); Sodium 138 mmol/L (136-145)
[2025-03-09 20:02] LABS: Anion Gap 12 (5-15); Calcium 9.9 mg/dL (8.7-10.4); Carbon Dioxide 24 mmol/L (20-31)
[2025-03-09 20:07] LABS: BUN/Creatinine Ratio 11.1 (10.0-20.0)
[2025-03-09 20:08] LABS: Blood Urea Nitrogen 8 mg/dL (9-23); Glucose 111 mg/dL (74-106)
--- NOTE | 2025-03-09 20:26 | DVH ---
EXAM: US PELVIC HISTORY: vaginal bleeding COMPARISON: MRI PELVIS WO W CONTRAST MRI on DOS: 02/13/25 TECHNIQUE: Transabdominal imaging was utilized. Grayscale and color doppler evaluation. Images were stored in the patient's permanent medical record. FINDINGS: UTERUS: Surgically removed RIGHT OVARY: 3.7 x 4.2 x 3.7 cm.Normal vascularity. Benign-appearing right ovarian cysts measuring up to 2.6 cm LEFT OVARY: Not well visualized OTHER: No free fluid is identified. Heterogeneous debris with oval-shaped appearance and large hypoechoic heterogeneous structure in the vaginal canal measuring 4.6 x 2 x 2.8 cm possible internal punctate echogenic foci which may represent calcifications. Differential includes mass versus postsurgical change. Correlation with possible direct visualization is recommended IMPRESSION: 1. Heterogeneous debris with oval-shaped appearance and large hypoechoic heterogeneous structure in the vaginal canal measuring 4.6 x 2 x 2.8 cm possible internal punctate echogenic foci which may represent calcifications. 2. Previously identified large uterine based mass has been surgically removed. 3. Consider direct visualization. 4. Recurrent mass along the vaginal canal versus postsurgical change versus hematoma.
== END 2025-03-09 22:05 | disposition home or self-care (01) ==
LOC: ER 18:28
DX: N93.9 Abnormal uterine and vaginal bleeding, unspecified (principal); Z90.710 Acquired absence of both cervix and uterus; Z79.01 Long term (current) use of anticoagulants
CPT/HCPCS: 36415; 76856; 80048; 85025; 86850; 86900; 86901